=== PATIENT | male | born 1985 | race Caucasian/White ===

== ENCOUNTER 2018-12-09 18:57 | Emergency (ER) | payer OTHER ==
[~2018-12-09] VITALS: Ht 190.5 cm; Wt 136.4 kg
[2018-12-09 19:03] VITALS: BP 128/80; TEMP 98.8
[2018-12-09 20:42] VITALS: PULSE 83
== END 2018-12-09 20:43 | disposition home or self-care (01) ==
LOC: COL.ER 18:57
DX: S82.832A Other fracture of upper and lower end of left fibula, initial encounter for closed fracture (principal); W00.0XXA Fall on same level due to ice and snow, initial encounter; X50.0XXA Overexertion from strenuous movement or load, initial encounter
CPT/HCPCS: Q4045